=== PATIENT | male | born 2000 | race African-American/Black ===

== ENCOUNTER 2025-02-21 04:44 | Emergency (ER) | payer OTHER, SELFPAY ==
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
[2025-02-21 04:54] VITALS: BP 127/75; PULSE 62; RESP 20; TEMP 36.5; O2SAT 98
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
--- OUTSIDE RECORDS SUMMARY | 2025-02-21 05:35 | XMS_ITS | Clinical Summary ---
Author Organization [facility] Address [address] [place] [id number] Care Team Providers Care Electrical Equipment Assembler Name Role Phone Mallory Malave MD Primary Care Pr ovider Allergies No known active allergies Medications No known medications Active Problems Problem Noted Date Diagnosed Date Urethritis 03/28/2021 Social History Tobacco Use Types Packs/Day Years Used Date Smoking Tobacco: Former Cigarettes Smokeless Tobacco: Never Tobacco Cessation:Counseling Given: Not Answered Personal Safety Answer Date Recorded Getting School Help Needed Not on file 02/25 Sex and Gender Information Value Date Recorded Sex Assigned at Not on file Legal Sex 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:48 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 Gender Identity Not on file Sexual Orientation Not on file Last Filed Vital Signs Vital Sign Reading Time Taken Comments Blood Pressure 150/60 02/09/2022 5:27 PM MOLD BLOWER Pulse 60 02/09/2022 5:25 PM M[employer] BLOWER Temperature 36.6 C (97.8 F) 02/09/2022 5:25 PM MOLD BLOWER Respiratory Rate 14 02/09/2022 5:25 PM MOLD BLOWER Oxygen Saturation 100% 02/09/2022 5:25 PM MOLD BLOWER Inhaled Oxygen Concentration - - Weight 97.5 kg (215 lb) 02/09/2022 5:25 PM MOLD BLOWER Height 170.2 cm (5' 7) 02/09/2022 5:25 PM MOLD BLOWER Body Mass Index 33.67 02/09/2022 5:25 PM MOLD BLOWER Plan of Treatment Not on file Insurance [facility] Care Teams Electrical Equipment Assembler Relationship Specialty Start Date End Date Mallory Malave MD [address] [place] [address] [address] [place] [address] PCP - General 05/25/20
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
[2025-02-21 05:48] LABS: Hematocrit 43.0 % (42.0-52.0); Hemoglobin 14.3 g/dL (14.0-18.0); Immature Granulocyte Percent A 0.3 % (0-0.5); Lymphocytes Absolute Auto 2.94 K/mm3 (0.9-3.2); Mean Corpuscular HGB Conc 33.3 g/dl (32-36); Mean Corpuscular Hemoglobin 29.2 pg (26-34); Mean Corpuscular Volume 87.8 fl (80-100); Nucleated Red Blood Cells Absolute Auto 0.000 K/mm3 (0.0-0.012); Nucleated Red Blood Cells Perc 0.0 % (0.0-0.2); Platelet Count Result 238 k/mm3 (150-375); Red Blood Count 4.90 M/mm3 (4.6-6.20); White Blood Count 8.6 K/mm3 (4.5-10.0)
[2025-02-21 05:59] LABS: Anion Gap 7 mmol/L (4-12); Blood Urea Nitrogen 15 mg/dL (9-20); Calcium 9.5 mg/dL (8.4-10.2); Carbon Dioxide 27 mmol/L (22-30); Chloride 106 mmol/L (98-107); Estimated CRCL calculation 146 ml/min; Estimated Glomerular Filt Rate > 60; Glucose 110 mg/dL (65-110); Potassium 3.9 mmol/L (3.4-5.0); Sodium 140 mmol/L (137-145)
[2025-02-21 07:44] VITALS: BP 113/77; PULSE 82; RESP 16; O2SAT 98
--- NOTE | 2025-02-21 07:44 | PC.NURSE ---
pt sleeping. attempted to wake pt up for a urine sample and pt ignoring this RN and refusing a catheter. pt uncooperative in his own care
[2025-02-21 08:59] VITALS: BP 120/73; PULSE 73; RESP 16; O2SAT 99
== END 2025-02-21 09:02 | disposition home or self-care (01) ==
PROVIDERS: Emergency Provider Student in an Organized Health Care Education/Training Program
DX: S19.9XXA Unspecified injury of neck, initial encounter (principal); S06.9X9A Unspecified intracranial injury with loss of consciousness of unspecified duration, initial encounter; F10.129 Alcohol abuse with intoxication, unspecified; Y90.6 Blood alcohol level of 120-199 mg/100 ml; V43.52XA Car driver injured in collision with other type car in traffic accident, initial encounter
CPT/HCPCS: 36415; 70450; 72125; 80048; 82077; 85025; 99284